=== PATIENT | male | born 1995 | race Caucasian/White ===

== ENCOUNTER → 2019-11-13 | Outpatient (CLI) | payer SELFPAY ==
--- NOTE | 2019-11-13 15:07 | US ---
EXAMINATION TYPE: US groin RT DATE OF EXAM: 11/13/2019 COMPARISON: NONE CLINICAL HISTORY: 50.819 Testicle pain, R10.2 Pelvic pain. right groin palpable that was much larger last week, no known injury, pain that goes into his testicles Scanning area of concern produced multiple lymph nodes, normal in size, largest = 0.8 x 0.8 x 0.7cm Nodes are not enlarged, show fatty hilus, normal color flow IMPRESSION: Probable lymph nodes the site of patient's palpable abnormality
--- NOTE | 2019-11-13 15:56 | US ---
EXAMINATION TYPE: US scrotum with doppler. Grayscale and color Doppler Duplex imaging performed of t karishma scrotum. DATE OF EXAM: 11/13/2019 COMPARISON: NONE CLINICAL HISTORY: 50.819 Testicle pain, R10.2 Pelvic pain. Palpable within right groin where pain rad iates to testicles EXAM MEASUREMENTS: TESTICLES: Right Testicle: 4.3 x 3.3 x 2.3cm Left Testicle: 4.5 x 2.9 x 2.3 cm EPIDIDYMIS HEAD: Right Epididymis: 1.0 cm Left Epididymis: 0.8 cm Doppler performed to assess for testicular vascularity; bilateral color flow and waveforms are seen. Presence of hydroceles: mild lateral bilaterally Presence of varicoceles: no Testicles show homogenous and symmetric echotexture. IMPRESSION: Small bilateral hydroceles.
== END | disposition home or self-care (01) ==
LOC: RADUSWWP 13:32
PROVIDERS: ATTEND Nurse Practitioner Family
DX: N43.3 Hydrocele, unspecified (principal); R10.2 Pelvic and perineal pain
CPT/HCPCS: 76870; 93975